=== PATIENT | male | born 1985 | race Caucasian/White ===

== ENCOUNTER 2018-07-22 21:37 | Emergency (ER) | payer SELFPAY ==
[~2018-07-22] VITALS: Ht 185.4 cm; Wt 129.7 kg
[2018-07-22 21:43] VITALS: Ht 185.4 cm; Wt 129.7 kg
[2018-07-22 23:30] LABS: BASOPHIL % 0.3 % (0-2); PLATELET COUNT 229 x10^3mcL (130-400); RED CELL DISTRIBUTION WIDTH 13.3 % (11.5-14.5)
[2018-07-22 23:40] LABS: CALCIUM 8.9 mg/dL (8.5-10.1); CARBON DIOXIDE 29.1 mmol/L (21-32); CHLORIDE SERUM 103 mmol/L (98-107); GFR1 > 60 mL/min; GLUCOSE SERUM 108 mg/dL (74-106); POTASSIUM SERUM 4.4 mmol/L (3.5-5.1); SODIUM SERUM 138 mmol/L (136-145)
[2018-07-22 23:45] LABS: ALBUMIN 3.9 g/dL (3.4-5.0); ALKALINE PHOSPHATASE 83 U/L (46-116); ALT/SGPT 50 U/L (16-63); AST/SGOT 25 U/L (15-37); BILIRUBIN TOTAL 0.4 mg/dL (0.20-1.00); TOTAL PROTEIN, SERUM 7.6 g/dL (6.4-8.2)
[2018-07-22 23:59] LABS: AMPHETAMINE QUAL UR NONE DETECTED (See below)
[2018-07-23 01:18] VITALS: BP 151/95
== END 2018-07-23 01:18 | disposition home or self-care (01) ==
LOC: ED 21:37
PROVIDERS: Emergency Medicine
DX: R42 Dizziness and giddiness (principal); R51 Headache; R04.0 Epistaxis; R11.2 Nausea with vomiting, unspecified
CPT/HCPCS: G0480; J2405; J7030; J8597